=== PATIENT | male | born 1965 | race Two or more races ===

== ENCOUNTER 2020-04-28 08:19 | Day surgery (SDC) | payer OTHER ==
[~2020-04-28 08:19] MED LIST: CEFAZOLIN 2 GM/D5W RTU 2 GM/50 ML RTUPB IV ONE; CEFAZOLIN 2 GM/D5W RTU 2 GM/50 ML RTUPB IV PRN; DEXAMETHASONE SOD PHOSPHATE INJ 4 MG/1 ML VIAL ONE; FENTANYL CITRATE INJ/PF 100 MCG/2 ML AMPUL ONE; LACTATED RINGERS 1000 ML IV PRN; LIDOCAINE 0.5% INJ-PF (5 MG/ML) 50 ML SDV SUBCUT PRN; MIDAZOLAM 2 MG/2 ML INJ ONE; ONDANSETRON HCL INJ/PF 4 MG/2 ML SDV ONE; PROPOFOL INJ 200 MG/20 ML VIAL IV ONE
[2020-04-28] MEDS ORDERED: METOCLOPRAMIDE HCL INJ/PF 10 MG/2 ML SDV ONE (09:46)
[2020-04-28] MEDS ORDERED: KETOROLAC TROMETHAMINE INJ/PF 30 MG/1 ML SDV ONE ×2 (09:52→10:08)
[2020-04-28] MEDS ORDERED: BUPIVACAINE HCL 0.5 % INJ/PF 30 ML SDV ONE (09:52)
[2020-04-28] MEDS ORDERED: EPINEPHRINE INJ/PF 1 MG/1 ML AMPULE ONE ×2 (09:52→10:15)
[2020-04-28] MEDS ORDERED: LIDOCAINE 1% INJ-PF (10 MG/ML) 30 ML SDV ONE (09:52)
[2020-04-28] MEDS ORDERED: OXYCODONE-ACETAMINOPHEN 5-325 MG TABLET PO PRN (09:53)
[2020-04-28] MEDS ORDERED: RINGERS SOLUTION,LACTATED 1,000 ML IV PRN (09:53)
[2020-04-28] MEDS ORDERED: KETOROLAC TROMETHAMINE 60 MG/2 ML SDV IM PRN (09:53)
[2020-04-28] MEDS ORDERED: MORPHINE SULFATE 10 MG/ML INJ IV PRN ×2 (09:53→10:17)
[2020-04-28] MEDS ORDERED: ONDANSETRON HCL INJ/PF 4 MG/2 ML SDV IV PRN ×2 (09:53→10:17)
[2020-04-28] MEDS ORDERED: MEPERIDINE HCL/PF INJ 25 MG/1 ML DISP.SYRIN IV PRN (10:17)
[2020-04-28] MEDS ORDERED: DIPHENHYDRAMINE HCL 50 MG/ML VIAL IV PRN (10:17)
[2020-04-28] MEDS ORDERED: PROMETHAZINE HCL INJ 25 MG/1 ML VIAL IV PRN ×2 (10:17)
[2020-04-28] MEDS ORDERED: FENTANYL CITRATE INJ/PF 100 MCG/2 ML AMPUL IV PRN ×3 (10:17)
--- NOTE | 2020-04-28 11:24 | Discharge Summary ---
Discharge Summary (SDC) - Discharge Final Diagnosis: Left knee medial meniscus tear of the posterior root, lateral complex meniscus tear, osteochondral defect medial femoral condyle, hypertrophic fat pad, diffuse degenerative changes. Date of Surgery: 04/28/20 Discharge Date: 04/28/20 Condition: Stable Treatment or Instructions: Full details of postoperative instructions have been provided to the patient in the clinic. Additionally they should maintain their bandage in place or change as needed for any saturation. They are to avoid getting the wound wet or submerging in a bath. No showers with the wound unprotected until cleared by me in the clinic. Patient is allowed to ambulate as tolerated however crutches have been encouraged as he returns to function safely. Prescriptions for pain medication of been given preoperatively. Follow-up with Dr. Sai Natarajan, orthopedic surgeon at [facility] for surgery, in 10 days. Call for an appointment. . [address], [place] [address]
--- NOTE | 2020-04-28 11:33 | Operative Report ---
Operative Report DATE OF SURGERY: 04/28/20 PREOPERATIVE DIAGNOSIS: Medial and lateral meniscus tear, left knee POSTOPERATIVE DIAGNOSIS: Left knee medial meniscus tear of the posterior root, lateral complex meniscus tear, osteochondral defect medial femoral condyle, hypertrophic fat pad, diffuse degenerative changes. OPERATION: Left knee arthroscopy, partial medial meniscectomy, partial lateral meniscectomy, medial femoral condyle microfracture, fat pad excision. SURGEON: VICKY HAYES JR ANESTHESIA: GA TISSUE REMOVED OR ALTERED: None COMPLICATIONS: None ESTIMATED BLOOD LOSS: 5 cc PROCEDURE: DESCRIPTION OF THE PROCEDURE: The patient was placed supine on the operating room table. After the patient was placed under general anesthesia, and appropriate timeout was performed. The patient was prepped and draped in the usual sterile fashion for arthroscopic surgery. The left lower extremity was then exsanguinated with the use of an Esmarch bandage and the tourniquet was inflated to 250 mmHg. The operation commenced with creation of the lateral portal with an 11 blade. The arthroscope was directed into the suprapatellar pouch with the knee held in extension. A systematic examination of the left knee was begun arthroscopically. The patellofemoral articulation was visualized and grade 2 changes of the patella, grade 1 changes of the femoral trochlea was found. The medial gutter was entered. No loose bodies were identified. The medial compartment was then entered and the medial portal was established under direct visualization with a spinal needle. The arthroscopic probe was used to inspect the contents of the medial compartment. The meniscus was inspected and a posterior root tear was appreciated with a small amount of intact peripheral cartilage that resisted subluxation of the meniscus. The weightbearing portion of the medial femoral condyle had a large defect of approximately 15 x 15 mm that was full-thickness down to bone. The tibial plateau had softening and portions of grade 2 changes. I proceeded to resect and contour the posterior medial meniscus with a combination of a biter and a shaver. I then turned my attention to the large defect and performed a microfracture. The notch was then visualized. The anterior cruciate ligament and PCL were found to be intact. The arthroscope was directed into the lateral compartment. Notch fat pad and ligamentum mucosum tissue were resected with a suction shaver in order to better visualize the lateral compartment. The meniscus was inspected with a probe and found overall be intact without a overt deep tear, however there was substantial fraying and complex changes throughout, most prominently at the anterior half. The meniscus was otherwise stable without overt subluxation with a probe. The unstable tearing of the anterior meniscus was resected with a suction shaver. A subsequently the lateral femoral condyle and the lateral tibial plateau were inspected with a probe. This found grade 0 changes with some softening of the lateral femoral condyle, the lateral tibial plateau had grade 2-3 changes diffusely. Medial plica was encountered upon returning to the patellofemoral compartment and this was resected. The patellofemoral compartment was revisited and it was found to be clear of any impinging synovium or fat pad. A mixture of Marcaine, lidocaine and toradol was injected into the right knee. The instruments were then removed. The portals were closed with 3-0 nylon and Xeroform and a light compressive dressing was applied. The tourniquet was deflated. The patient was recovered from his anesthetic and was returned to the recovery room in stable condition. There were no complications.
[2020-04-28 15:06] VITALS: BP 133/85
== END 2020-04-28 13:05 | disposition home or self-care (01) ==
LOC: OROUT 08:19
PROVIDERS: ATTEND Orthopaedic Surgery
DX: S83.272A Complex tear of lateral meniscus, current injury, left knee, initial encounter (principal); S83.242A Other tear of medial meniscus, current injury, left knee, initial encounter; X58.XXXA Exposure to other specified factors, initial encounter; M79.4 Hypertrophy of (infrapatellar) fat pad; M67.52 Plica syndrome, left knee; M21.862 Other specified acquired deformities of left lower leg; M17.12 Unilateral primary osteoarthritis, left knee; Z20.828 Contact with and (suspected) exposure to other viral communicable diseases; F17.210 Nicotine dependence, cigarettes, uncomplicated; G47.33 Obstructive sleep apnea (adult) (pediatric); Z79.82 Long term (current) use of aspirin; Z79.891 Long term (current) use of opiate analgesic
CPT/HCPCS: 87635; 29880; 29879; 15833; J2250; J3490 ×2; J1100; J0171; J3010; J1885; J2405; J2704; J0690; C9803; J2765